=== PATIENT | female | born 1970 | race Caucasian/White ===

== ENCOUNTER 2023-09-26 08:56 | Day surgery (SDC) | payer BC ==
[~2023-09-26 08:56] MED LIST: Sodium Chloride 0.9% 10 ML Syringe FLUSH PRN; Sodium Chloride 0.9% 2.5 ML Syringe FLUSH PRN; Sodium Chloride 0.9% 20 ML SDV IV PRN
[2023-09-26] MEDS: Lactated Ringers 1,000 ML IV SCH (09:21)
[2023-09-26] MEDS ORDERED: Ondansetron 4 MG/2 ML SDV ONE (10:09)
[2023-09-26] MEDS ORDERED: propofoL 50 ML ONE (10:09)
[2023-09-26] MEDS ORDERED: Lidocaine 2% 5 ML SDV ONE (10:09)
[2023-09-26] MEDS ORDERED: Phenylephrine HCl In 0.9% NaCl 1 MG/10 ML Syringe ONE (10:23)
[2023-09-26] MEDS ORDERED: Glycopyrrolate 0.2 MG/ML SDV ONE (10:23)
[2023-09-26] MEDS ORDERED: Dexamethasone 4 MG/ML 5 ML MDV ONE (10:43)
[2023-09-26 13:43] VITALS: BP 97/68; PULSE 60
== END 2023-09-26 12:02 | disposition home or self-care (01) ==
LOC: MW.SDS 08:56
PROVIDERS: ATTEND Surgery
DX: Z12.11 Encounter for screening for malignant neoplasm of colon (principal); K29.50 Unspecified chronic gastritis without bleeding; K31.7 Polyp of stomach and duodenum; K21.9 Gastro-esophageal reflux disease without esophagitis; K44.9 Diaphragmatic hernia without obstruction or gangrene; E66.9 Obesity, unspecified; Z68.34 Body mass index [BMI] 34.0-34.9, adult; Z87.891 Personal history of nicotine dependence; Z79.899 Other long term (current) drug therapy
CPT/HCPCS: 43239; 43251; 45378; J1100; J2371; J2405; J2704; J3490; J7120; 00813